=== PATIENT | female | born 1955 | race Caucasian/White ===

== ENCOUNTER 2019-12-05 19:23 | Emergency (ER) | payer MEDICARE, OTHER ==
[~2019-12-05] VITALS: Ht 165.1 cm; Wt 68.0 kg
[2019-12-05] MEDS ORDERED: IBUPROFEN 600 MG TABLET PO ONE (19:30)
--- NOTE | 2019-12-05 19:34 | NUR ---
Patient BIB [facility] c/o exhaustion and states she would like to commit suicide. Patient states if she did it, it would be with pills, however she does not have access to them. Patient is in NAD. She is cooperative and calm. Respirations even and unlabored. 2 out of 2 patient belonging bags bagged and placed in the locked cabinet. Room secured and sitter outside room. Report given to GEORGE Ridley.
[2019-12-05 19:58] LABS: BASOPHILS # (AUTO) 0.06 x10^3/uL (0-0.1); BASOPHILS % (AUTO) 0 % (0-1); EOSINOPHILS # (AUTO) 0.01 x10^3/uL (0-0.4); EOSINOPHILS % (AUTO) 0 % (1-7); LYMPHOCYTES # (AUTO) 2.26 x10^3/uL (1-3.4); LYMPHOCYTES % (AUTO) 17 % (22-44); MD NO; MEAN CORPUSCULAR HEMOGLOBIN 31.1 pg (27.0-34.8); MEAN CORPUSCULAR HGB CONC 33.8 g/dL (32.4-35.8); MEAN PLATELET VOLUME 8.2 fL (7.4-10.4); MONOCYTES # (AUTO) 0.88 x10^3/uL (0.2-0.8); MONOCYTES % (AUTO) 7 % (2-9); NEUTROPHILS # (AUTO) 9.97 x10^3/uL (1.8-6.8); NEUTROPHILS % (AUTO) 76 % (42-75); PLATELET COUNT 378 x10^3/uL (130-400); RED BLOOD COUNT 4.41 x10^6/uL (3.82-5.3); RED CELL DISTRIBUTION WIDTH 14.4 % (9.6-15.2)
[2019-12-05 19:59] LABS: ALBUMIN 4.3 g/dL (3.4-5.0); ANION GAP 9 mmol/L (5-15); CALCIUM 9.6 mg/dL (8.5-10.1); CHLORIDE 108 mmol/L (98-107); CREATININE 0.83 mg/dL (0.55-1.02); SALICYLATE LEVEL 2.1 mg/dL (2.8-20.0)
[2019-12-05 20:02] LABS: AMPHETAMINE SCREEN, URINE Negative (Negative); BARBITURATE SCREEN, URINE Negative (Negative); BENZODIAZEPINE SCREEN, URINE Negative (Negative); CANNABINOID SCREEN, URINE Positive (Negative); COCAINE SCREEN, URINE Negative (Negative); METHADONE SCREEN, URINE Negative (Negative); OPIATE SCREEN, URINE Negative (Negative)
--- NOTE | 2019-12-05 20:05 | NUR ---
ALL RESULTS ARE BACK AT THIS TIME. CHART UP FOR RECHECK.
[2019-12-05] MEDS ORDERED: IBUPROFEN 600 MG TABLET ONE (20:46)
--- NOTE | 2019-12-05 20:49 | NUR ---
MEDS ADMIN PER JAN. PT RESTING COMFORTABLY ON GURCLIVE. IQRA.
[2019-12-05 21:16] VITALS: BP 156/84
--- NOTE | 2019-12-05 21:34 | NUR ---
[facility] CALLED AND THEY HAVE A COUPLE BEDS OPEN WELL THE DAY ROOM. PT GIVEN TAXI VOUCHER TO [facility] ON [address]. TWO BAGS OF PT BELONGINGS RETURNED TO PT. PT AMBULATED TO DC WITH STEADY GAIT.
== END 2019-12-05 21:37 | disposition home or self-care (01) ==
LOC: ED 21:30
DX: F33.0 Major depressive disorder, recurrent, mild (principal); I10 Essential (primary) hypertension; M79.7 Fibromyalgia
CPT/HCPCS: 36415; 80048; 80307; 82040; 85025; 99283

== ENCOUNTER 2021-01-04 11:37 | Emergency (ER) | payer OTHER ==
[~2021-01-04] VITALS: Ht 170.2 cm; Wt 62.1 kg
--- NOTE | 2021-01-04 12:00 | NUR ---
PT BROUGHT IN BY [facility] BECAUSE SHE STATED THAT SHE WANTS TO TAKE PILLS AND OVERDOSE. PT WANTS TO GO TO [facility]. PT AWAITING EVAL. PT'S BELONGINGS PLACED IN LOCKER AND PULL DOWN DOORS IN PLACE. PT NOT WANTING TO BE HERE AND SAYING SHE NEEDS TO GO BECAUSE WE WON'T BE ABLE TO GET HER TO [facility]
[2021-01-04] MEDS ORDERED: CLON0.5T PO (12:10)
[2021-01-04] MEDS ORDERED: RISP0.5T24 PO (12:10)
[2021-01-04] MEDS ORDERED: LORA-445 PO (12:10)
[2021-01-04] MEDS ORDERED: DIVA125T2 PO (12:10)
[2021-01-04 13:00] LABS: BASOPHILS % (AUTO) 1 % (0-1); EOSINOPHILS % (AUTO) 1 % (1-7); LYMPHOCYTES % (AUTO) 22 % (22-44); MEAN CORPUSCULAR HEMOGLOBIN 32.1 pg (27.0-34.8); MEAN CORPUSCULAR HGB CONC 35.1 g/dL (32.4-35.8); MONOCYTES % (AUTO) 9 % (2-9); NEUTROPHILS % (AUTO) 67 % (42-75); PLATELET COUNT 301 x10^3/uL (130-400); RED BLOOD COUNT 3.84 x10^6/uL (3.82-5.3); RED CELL DISTRIBUTION WIDTH 13.1 % (9.6-15.2)
[2021-01-04 13:03] LABS: MD NO
[2021-01-04 13:05] LABS: ALANINE AMINOTRANSFERASE 29 U/L (12-78); ALBUMIN 3.7 g/dL (3.4-5.0); ANION GAP 8 mmol/L (5-15); CALCIUM 8.7 mg/dL (8.5-10.1); CHLORIDE 106 mmol/L (98-107)
[2021-01-04 13:07] LABS: ALKALINE PHOSPHATASE 86 U/L (45-117); BILIRUBIN,TOTAL 0.2 mg/dL (0.2-1.0); SALICYLATE LEVEL 3.2 mg/dL (2.8-20.0); TOTAL PROTEIN 7.1 g/dL (6.4-8.2)
--- NOTE | 2021-01-04 13:14 | NUR ---
GOT PATIENT LUNCH, ATE ALL. GOT BEDSIDE COMMODE TO REDO URINE TEST.
--- NOTE | 2021-01-04 13:21 | NUR ---
front end loader driver Keyana Prieto
--- NOTE | 2021-01-04 13:29 | NUR ---
PATIENT VOIDED IN BEDSIDE COMMODE. SENT TO LAB. CLEAR YELLOW URINE
[2021-01-04] MEDS ORDERED: LORazepam 0.5MG TABLET ONE (13:38)
--- NOTE | 2021-01-04 13:38 | NUR ---
PATIENT COOPERATIVE BUT PACING AROUND ROOM. GAVE PRN ATIVAN TO HELP HER RELAX
[2021-01-04 13:42] LABS: MICROSCOPIC NOT IND
--- NOTE | 2021-01-04 13:43 | NUR ---
PATIENT ATE TWO SANDWICHES, AND IS IN BED. SITTER OUTSIDE OF ROOM
[2021-01-04 13:52] LABS: AMPHETAMINE SCREEN, URINE Negative (Negative); BARBITURATE SCREEN, URINE Negative (Negative); BENZODIAZEPINE SCREEN, URINE Negative (Negative); CANNABINOID SCREEN, URINE Negative (Negative); COCAINE SCREEN, URINE Negative (Negative); METHADONE SCREEN, URINE Negative (Negative); OPIATE SCREEN, URINE Negative (Negative)
[2021-01-04] MEDS ORDERED: LORazepam 0.5MG TABLET PO PRN (14:00)
--- NOTE | 2021-01-04 14:05 | NUR ---
assumed care of pt. pt BIB caregiver for SI with plan. pt has a psych hx and per report has been complaint with meds pt has been undressed by previous RN, placed in gown and is in secure room with sitter present for safety awaiting test results pt is standing at the door yelling at staff. attempting to calm and re-orient pt
--- NOTE | 2021-01-04 14:08 | NUR ---
REPORT TO JUAN RAMON RN, PATIENT IN BED BUT PACING ABOUT FREQUENTLY. SITTER OUTSIDE ROOM.
--- NOTE | 2021-01-04 15:05 | NUR ---
pt continues to pace in her room. no apparent resp. distress. room secure. sitter present for safety report to Yudelka VAZQUEZ
--- NOTE | 2021-01-04 15:07 | NUR ---
Report from GEORGE Caro. Assumed care.
--- NOTE | 2021-01-04 15:51 | NUR ---
Pt resting, eyes closed, breathing equal, non-labored. In sight of sitter.
[2021-01-04] MEDS ORDERED: BICT1TAB PO (15:59)
[2021-01-04] MEDS ORDERED: QUET100T4 PO (15:59)
[2021-01-04] MEDS ORDERED: OMEP-110 PO (15:59)
[2021-01-04] MEDS ORDERED: TRAZ-175 PO (15:59)
--- NOTE | 2021-01-04 16:14 | NUR ---
Pt still sleeping, breathing equal, non-labored.
--- NOTE | 2021-01-04 17:12 | NUR ---
Pt eating sandwich, calm, cooperative. Denies needs at this time.
--- NOTE | 2021-01-04 18:40 | NUR ---
[facility] reports they will be here to transport pt at 1930.
--- NOTE | 2021-01-04 19:11 | NUR ---
Report given to RB.
[2021-01-04 19:25] VITALS: BP 133/65
--- NOTE | 2021-01-04 19:26 | NUR ---
Provided pt sandwich and chips.
[2021-01-05] MEDS ORDERED: DIVALPROEX 125 MG TABLET.DR PO SCH (09:00)
[2021-01-05] MEDS ORDERED: RISPERIDONE 0.5 MG TABLET PO SCH (09:00)
== END 2021-01-04 20:18 ==
LOC: ED 14:33
DX: R45.851 Suicidal ideations (principal); F32.9 Major depressive disorder, single episode, unspecified; I10 Essential (primary) hypertension
CPT/HCPCS: 36415; 80053; 80299; 80307; 80320; 80329; 81003; 85025; 99283; 99285; G0480

== ENCOUNTER 2021-03-07 12:16 | Inpatient (IN) | payer OTHER ==
[~2021-03-07] VITALS: Ht 170.2 cm; Wt 57.8 kg
[~2021-03-07 12:16] MED LIST: BICT1TAB PO; CLON0.5T PO; DIVA125T2 PO; LORA-445 PO; OMEP-110 PO; QUET100T4 PO; RISP0.5T24 PO; TRAZ-175 PO
--- NOTE | 2021-03-07 12:25 | NUR ---
RECREATIONAL FACILITIES MOTEL MANAGER: RECEIVED REPORT FROM EMS THAT PATIENT LIVES IN A "CRACK APARTMENT [facility] ON [facility]" NOTIFIED SW OF ABOVE
--- NOTE | 2021-03-07 13:05 | NUR ---
PT GOING TO CT AT THIS TIME. PT ATTEMPTING TO LEAVE WITH ALL VITALS MONITORS ON. PT EASILY REDIRECTED BACK TO BED.
--- NOTE | 2021-03-07 13:06 | NUR ---
CALL TO [facility] FOR SITTER FOR THIS PT.
[2021-03-07 13:31] LABS: BASOPHILS % (AUTO) 0 % (0-1); EOSINOPHILS % (AUTO) 0 % (1-7); LYMPHOCYTES % (AUTO) 13 % (22-44); MEAN CORPUSCULAR HEMOGLOBIN 31.4 pg (27.0-34.8); MEAN CORPUSCULAR HGB CONC 34.5 g/dL (32.4-35.8); MEAN PLATELET VOLUME 7.3 fL (7.4-10.4); MONOCYTES % (AUTO) 6 % (2-9); NEUTROPHILS % (AUTO) 80 % (42-75); PLATELET COUNT 353 x10^3/uL (130-400); RED BLOOD COUNT 4.37 x10^6/uL (3.82-5.3); RED CELL DISTRIBUTION WIDTH 13.1 % (9.6-15.2)
[2021-03-07 13:33] LABS: MD NO
[2021-03-07 13:43] LABS: ALANINE AMINOTRANSFERASE 22 U/L (12-78); ALBUMIN 4.3 g/dL (3.4-5.0); ANION GAP 8 mmol/L (5-15); CALCIUM 9.2 mg/dL (8.5-10.1); CHLORIDE 93 mmol/L (98-107); CREATININE 0.68 mg/dL (0.55-1.02)
[2021-03-07 13:53] LABS: ALKALINE PHOSPHATASE 97 U/L (45-117); BILIRUBIN,TOTAL 0.8 mg/dL (0.2-1.0); TOTAL PROTEIN 7.9 g/dL (6.4-8.2)
--- NOTE | 2021-03-07 14:07 | NUR ---
ABLE TO GET PT A SITTER PT WAS WALKING AROUND HALLS CONFUSED. PT RESTING IN BED CURRENTLY EATING MEAL. ATTEMPTED STRAIGHT CATH, UNABLE TO GET A TESTABLE AMOUNT OF URINE. WILL INFORM ERP. PT GIVEN MORE FLUIDS.
--- NOTE | 2021-03-07 15:21 | NUR ---
TASK RN: 20G PIV PLACED IN RIGHT AC. PT RESTING IN [facility], MONTIORING IN PLACE, NADN AT THIS TIME, PER PT NO OTHER NEEDS, SITTER AT BEDSIDE.
--- NOTE | 2021-03-07 15:37 | NUR ---
BREAK RN: PT REFUSING VITAL SIGNS AND MONITORING IN AT THIS TIME.
--- NOTE | 2021-03-07 16:03 | NUR ---
OBTAINED URINE SAMPLE FROM PT, WALKED URINE TO LAB. PT REFUSED TO CONTINUE WITH MRI SCAN EARLIER. SPOKE WITH PT ABOUT IMPORTANCE OF GETTING SCAN DONE. PT AGREED TO COMPLETE SCAN. CALLED MRI, STATED THEY WILL COME GET PT FOR ORDERED SCAN.
--- NOTE | 2021-03-07 16:05 | NUR ---
PT DOES NOT KNOW THE MEDS SHE WAS TAKING AT HOME. UNABLE TO COMPLETE MED REC AT THIS TIME. PT DENIES ANY PAIN CURRENTLY. PT STATED SHE WANTS TO STAY HERE. PT HAS BEEN EATING MEAL TRAY AND DRINKING FLUIDS. SITTER AT BEDSIDE.
[2021-03-07 16:30] LABS: POTASSIUM,URINE RANDOM 2 mmol/L; SODIUM,URINE RANDOM 11 mmol/L
[2021-03-07 16:32] LABS: AMPHETAMINE SCREEN, URINE Negative (Negative); BARBITURATE SCREEN, URINE Negative (Negative); BENZODIAZEPINE SCREEN, URINE Negative (Negative); CANNABINOID SCREEN, URINE Negative (Negative); CHLORIDE,URINE RANDOM < 10 mmol/L; COCAINE SCREEN, URINE Negative (Negative); METHADONE SCREEN, URINE Negative (Negative); OPIATE SCREEN, URINE Negative (Negative)
[2021-03-07] MEDS ORDERED: MAGNESIUM SULFATE PMX 2GM/50ML 50 ML IV ONE (18:00)
[2021-03-07] MEDS ORDERED: ONDANSETRON 2MG/ML, 2ML IVPush PRN (18:00)
[2021-03-07] MEDS ORDERED: ACETAMINOPHEN 325 MG TABLET PO PRN (18:00)
[2021-03-07] MEDS ORDERED: POTASSIUM CHLORIDE 20 MEQ TAB.ER.PRT PO ONE (18:00)
--- NOTE | 2021-03-07 18:30 | NUR ---
REPORT GIVEN TO LIZABETH VAZQUEZ
[2021-03-07 19:00] VITALS: BP 105/70
[2021-03-07] MEDS: SODIUM CHLORIDE FLUSH 10ML SYR IVF SCH (21:00)
[2021-03-07] MEDS: MELATONIN 5 MG TABLET PO PRN (21:19)
[2021-03-07] MEDS: ENOXAPARIN 40 MG/0.4 ML SQ SCH (21:19)
[2021-03-08 05:43] LABS: BASOPHILS % (AUTO) 1 % (0-1); EOSINOPHILS % (AUTO) 1 % (1-7); LYMPHOCYTES % (AUTO) 31 % (22-44); MEAN CORPUSCULAR HEMOGLOBIN 31.6 pg (27.0-34.8); MEAN CORPUSCULAR HGB CONC 34.9 g/dL (32.4-35.8); MONOCYTES % (AUTO) 9 % (2-9); NEUTROPHILS % (AUTO) 58 % (42-75); PLATELET COUNT 335 x10^3/uL (130-400)
[2021-03-08 05:50] LABS: CHLORIDE 104 mmol/L (98-107)
[2021-03-08 05:55] LABS: MD NO
[2021-03-08 05:59] LABS: ANION GAP 10 mmol/L (5-15); CALCIUM 8.7 mg/dL (8.5-10.1); CREATININE 0.68 mg/dL (0.55-1.02)
[2021-03-08 06:00] LABS: ALANINE AMINOTRANSFERASE 20 U/L (12-78); ALBUMIN 3.6 g/dL (3.4-5.0); ALKALINE PHOSPHATASE 94 U/L (45-117); BILIRUBIN,TOTAL 0.2 mg/dL (0.2-1.0); TOTAL PROTEIN 6.9 g/dL (6.4-8.2)
[2021-03-08 07:22] VITALS: BP 113/73
[2021-03-08] MEDS: PANTOPRAZOLE 40 MG IV IVPush SCH (08:08)
[2021-03-08] MEDS: SODIUM CHLORIDE FLUSH 10ML SYR IVF SCH ×2 (08:09→20:46)
[2021-03-08] MEDS: INSULIN LISPRO 100 UNITS/ML, PEN SQ-INSULIN SCH ×3 (11:00→20:53)
[2021-03-08] MEDS: METOCLOPRAMIDE 10MG TABLET PO SCH ×3 (11:37→20:47)
[2021-03-08] MEDS: NICOTINE 14MG/24 HR PATCH.TD24 TD SCH (12:47)
[2021-03-08 13:33] LABS: MICROSCOPIC NOT IND
[2021-03-08] MEDS ORDERED: LORazepam 0.5MG TABLET PO ONE (14:30)
[2021-03-08 14:49] VITALS: BP 96/68
[2021-03-08] MEDS: DIVALPROEX 125 MG TABLET.DR PO SCH (15:51)
[2021-03-08 18:33] VITALS: BP 104/68
[2021-03-08] MEDS: MELATONIN 5 MG TABLET PO PRN (20:47)
[2021-03-08] MEDS: ENOXAPARIN 40 MG/0.4 ML SQ SCH (20:48)
[2021-03-08] MEDS ORDERED: RISPERIDONE 2 MG TABLET PO SCH (21:00)
[2021-03-09 01:19] VITALS: BP 103/70
[2021-03-09 05:17] LABS: ANION GAP 5 mmol/L (5-15); CALCIUM 9.1 mg/dL (8.5-10.1); CHLORIDE 110 mmol/L (98-107); CREATININE 0.68 mg/dL (0.55-1.02)
[2021-03-09] MEDS: INSULIN LISPRO 100 UNITS/ML, PEN SQ-INSULIN SCH ×3 (07:00→16:00)
[2021-03-09 07:20] VITALS: BP 103/74
[2021-03-09] MEDS: PANTOPRAZOLE 40 MG IV IVPush SCH (07:57)
[2021-03-09] MEDS: METOCLOPRAMIDE 10MG TABLET PO SCH ×3 (07:57→16:37)
[2021-03-09] MEDS: DIVALPROEX 125 MG TABLET.DR PO SCH (07:57)
[2021-03-09] MEDS: SODIUM CHLORIDE FLUSH 10ML SYR IVF SCH (07:57)
[2021-03-09] MEDS ORDERED: RISPERIDONE 1 MG TABLET PO SCH (09:00)
[2021-03-09] MEDS: NICOTINE 14MG/24 HR PATCH.TD24 TD SCH (11:14)
[2021-03-09] MEDS ORDERED: OMNIPAQUE 350 MG/ML, 100ML BOTTLE ONE (11:39)
[2021-03-09 13:29] VITALS: BP 114/75
[2021-03-09] MEDS ORDERED: ARIP5TAB56 PO (14:32)
[2021-03-09] MEDS ORDERED: MIRT-34 PO (14:32)
== END 2021-03-09 18:31 | disposition home or self-care (01) | DRG 640 ==
LOC: ED 15:50 → EDIP 16:10 → 3N 18:58
PROVIDERS: ADMIT Hospitalist; ATTEND Hospitalist
PROC: 0T9B30Z Drainage of Bladder with Drainage Device, Percutaneous Approach (ICD-10-PCS; principal; 2021-03-08)
DX: E87.1 Hypo-osmolality and hyponatremia (principal); Q28.3 Other malformations of cerebral vessels; G93.41 Metabolic encephalopathy; G37.2 Central pontine myelinolysis; F31.32 Bipolar disorder, current episode depressed, moderate; R45.851 Suicidal ideations; D18.02 Hemangioma of intracranial structures; D72.829 Elevated white blood cell count, unspecified; E11.9 Type 2 diabetes mellitus without complications; E87.6 Hypokalemia; F17.210 Nicotine dependence, cigarettes, uncomplicated; F41.9 Anxiety disorder, unspecified; I10 Essential (primary) hypertension; K52.9 Noninfective gastroenteritis and colitis, unspecified; M79.7 Fibromyalgia; Z83.3 Family history of diabetes mellitus; Z91.5 Personal history of self-harm; Z79.899 Other long term (current) drug therapy; Z79.891 Long term (current) use of opiate analgesic; Z79.01 Long term (current) use of anticoagulants; Z80.43 Family history of malignant neoplasm of testis
CPT/HCPCS: 36415; 70450; 70553; 71045; 74018; 74177; 80048; 80053; 80164; 80307; 80320; 81003; 82140; 82436; 82607; 82962; 83690; 83735; 83930; 83935; 84100; 84133; 84295; 84300; 84425; 84443; 85025; 99285; G0378; J1650; Q9967; C9113; G0480; J1815; J3475; Q0181

== ENCOUNTER 2021-05-03 11:03 | Emergency (ER) | payer OTHER ==
[~2021-05-03] VITALS: Ht 170.2 cm; Wt 50.4 kg
[~2021-05-03 11:03] MED LIST changes: +ARIP5TAB56 PO; +MIRT-14 PO
[2021-05-03 11:06] VITALS: BP 163/88
[2021-05-03] MEDS ORDERED: BUPIVACAINE 0.25% ONE (11:17)
--- NOTE | 2021-05-03 11:21 | NUR ---
pt AMY CAN from home for evaluation of facial swelling x3 days. pt reports that she has a "broken tooth" and that it is very painful. no difficulty breathing speaking or swallowing. no sweling to lips or tongue. per report, pt is seen bya home health nurse and that person wanted her to come in for evaluation pt has a hx of Bipolar and when asked if she has any feelings of wanting to harm herself or others, she states yes, but that this is her basline. pt has no plan. pt has no injuries. pt A&O x4. Dr. Max at bedside aware. pt reports that she has a friend at home as her support system
[2021-05-03] MEDS ORDERED: HYDROcodone/APAP 5/325 TABLET ONE (11:29)
[2021-05-03] MEDS ORDERED: HYDROcodone/APAP 5/325 TABLET PO ONE (11:30)
--- NOTE | 2021-05-03 12:02 | NUR ---
CARE FOR DC ONLY PROVIDED. PT SITTING UP ON GURNEY. NOTED SWELLING TO LEFT JAW. PT STATES "I'M BEING DC'D ALREADY. I CANT GET HOME" DISCUSSED WITH PT SHE IS BEING PROVIDED WITH A TAXI VOUCHER. PT REPEATS SEVERAL TIMES "YOU HAVE A TAXI VOUCHER FOR ME?" NO IV TO DC. REVIEWED DC INSTRUCTIONS WITH PT, INCLUDING PT NEEDS TO GET RX FOR ABX FILLED AND F/U WITH DENTIST AND PCP. PT LEFT AMB, GAIT STEADY.
== END 2021-05-03 12:11 | disposition home or self-care (01) ==
LOC: ED 11:05
DX: K02.9 Dental caries, unspecified (principal); K04.7 Periapical abscess without sinus; F17.200 Nicotine dependence, unspecified, uncomplicated; I10 Essential (primary) hypertension; E11.9 Type 2 diabetes mellitus without complications; G89.29 Other chronic pain; M19.90 Unspecified osteoarthritis, unspecified site
CPT/HCPCS: 64400; 99283

== ENCOUNTER 2021-08-04 11:16 | Emergency (ER) | payer OTHER ==
[~2021-08-04] VITALS: Ht 170.2 cm; Wt 68.3 kg
[2021-08-04 12:01] VITALS: BP 115/66
== END 2021-08-04 17:00 | disposition home or self-care (01) ==
LOC: ED 15:33
DX: F31.9 Bipolar disorder, unspecified (principal); E11.9 Type 2 diabetes mellitus without complications